=== PATIENT | female | born 2000 | race Caucasian/White ===

== ENCOUNTER 2020-02-09 09:30 | Outpatient (REF) | payer OTHER, SELFPAY ==
[2020-02-09 10:46] LABS: COVID-19 Test Negative (Negative)
== END 2020-02-09 09:31 | disposition home or self-care (01) ==
LOC: HO.EMPCOV 09:30
PROVIDERS: Visit Provider Internal Medicine
DX: Z20.828 Contact with and (suspected) exposure to other viral communicable diseases (principal)
CPT/HCPCS: 87635; C9803; U0003

== ENCOUNTER 2020-02-16 17:41 | Outpatient (REF) | payer OTHER, SELFPAY ==
[2020-02-16 18:26] LABS: COVID-19 Test Negative (Negative)
== END 2020-02-16 17:42 | disposition home or self-care (01) ==
LOC: HO.LAB 17:41
PROVIDERS: Visit Provider Internal Medicine
DX: Z20.828 Contact with and (suspected) exposure to other viral communicable diseases (principal)
CPT/HCPCS: 87635; C9803

== ENCOUNTER 2020-04-05 08:36 | Outpatient (REF) | payer OTHER, SELFPAY ==
[2020-04-05 08:57] LABS: COVID-19 Test Negative (Negative)
== END 2020-04-05 08:37 | disposition home or self-care (01) ==
LOC: HO.EMPCOV 08:36
PROVIDERS: Visit Provider Internal Medicine
DX: Z20.822 Contact with and (suspected) exposure to COVID-19 (principal)
CPT/HCPCS: 36415; 87635; C9803

== ENCOUNTER 2020-05-24 14:26 | Outpatient (REF) | payer OTHER, SELFPAY ==
[2020-05-24 14:43] LABS: COVID-19 Test Negative (Negative)
== END 2020-05-24 14:27 | disposition home or self-care (01) ==
LOC: HO.EMPCOV 14:26
PROVIDERS: Visit Provider Internal Medicine
DX: Z20.822 Contact with and (suspected) exposure to COVID-19 (principal)
CPT/HCPCS: 36415; 87635; C9803

== ENCOUNTER 2020-06-07 12:41 | Outpatient (REF) | payer OTHER, SELFPAY ==
[2020-06-07 13:00] LABS: COVID-19 Test Negative (Negative); IDNOW Serial# 55D5AD1C
== END 2020-06-07 12:42 | disposition home or self-care (01) ==
LOC: HO.EMPCOV 12:41
PROVIDERS: Visit Provider Internal Medicine
DX: Z20.822 Contact with and (suspected) exposure to COVID-19 (principal)
CPT/HCPCS: 36415; 87635; C9803

== ENCOUNTER 2020-06-09 09:35 | Outpatient (REF) | payer OTHER, SELFPAY ==
[2020-06-09 10:18] LABS: MANUAL DIFF FLAG NO
[2020-06-09 10:23] LABS: Basophils Percent Auto 0.1 % (0-2); Eosinophils Percent Auto 0.1 % (0-4); Hematocrit 40.4 % (37-47); Imm Gran Abs Auto 0.06 X10*3/uL (0.00-0.03); Imm Gran Pct Auto 0.4 % (0.0-0.4); Lymphocytes Absolute Auto 3.9 X10*3/uL (1.2-4.9); Mean Corpuscular HGB Conc 32.2 g/dl (31.0-35.0); Mean Corpuscular Hemoglobin 30.4 pg (27.0-33.0); Mean Corpuscular Volume 94.4 fL (80-98); Mean Platelet Volume 10.3 fL (9.4-12.3); Monocytes Absolute Auto 1.3 X10*3/uL (0.1-1.2); Monocytes Percent Auto 9.1 % (2-11); Neutrophils Absolute Auto 8.6 X10*3/uL (2.0-8.3); Neutrophils Percent Auto 62.3 % (45-73); Platelet Count 317 X10*3/uL (160-400); Red Blood Count 4.28 X10*6/uL (4.20-5.50); Red Cell Distribution Width 12.4 % (11.0-16.0); White Blood Count 13.9 X10*3/uL (4.8-10.8)
[2020-06-09 10:59] LABS: Alanine Aminotransferase 12 U/L (0-31); Albumin Level 4.4 g/dL (3.5-5.0); Alkaline Phosphatase 67 U/L (39-117); Anion Gap 11 (12-20); Aspartate Amino Transferase 13 U/L (5-31); Bilirubin Total 0.5 mg/dL (0.0-1.0); Blood Urea Nitrogen 10 mg/dL (9-16); Calcium 9.4 mg/dL (8.4-10.2); Carbon Dioxide 31 mmol/L (22-29); Chloride 105 mmol/L (96-108); Cholesterol 135 mg/dL; Estimated Glomerular Filt Rate > 60; Glucose Fasting 83 mg/dL (60-99); HDL Cholesterol 52 mg/dL; LDL Cholesterol Calculated 75 mg/dl; Potassium 3.6 mmol/L (3.3-5.1); Sodium 143 mmol/L (135-145); Total Protein 6.8 g/dL (6.5-8.0); Triglycerides 41 mg/dL
[2020-06-09 11:21] LABS: TSH reflex Free T4 1.43 uIU/mL (0.32-4.0)
== END 2020-06-09 09:36 | disposition home or self-care (01) ==
LOC: HO.LAB 09:35
PROVIDERS: PCP Nurse Practitioner Family; Visit Provider Nurse Practitioner Family
DX: J01.90 Acute sinusitis, unspecified (principal)
CPT/HCPCS: 36415; 80053; 80061; 84443; 85025

== ENCOUNTER 2020-06-22 14:20 | Outpatient (REF) | payer OTHER, SELFPAY ==
[2020-06-22 14:42] LABS: COVID-19 Test Negative (Negative); IDNOW Serial# 55D5AD1C
== END 2020-06-22 14:21 | disposition home or self-care (01) ==
LOC: HO.EMPCOV 14:20
PROVIDERS: Visit Provider Internal Medicine
DX: Z20.822 Contact with and (suspected) exposure to COVID-19 (principal)
CPT/HCPCS: 36415; 87635; C9803

== ENCOUNTER 2020-10-05 13:13 | Outpatient (REF) | payer OTHER, SELFPAY ==
[2020-10-06 09:20] LABS: CT PCR NOT DETECTED (Not Detect.); NG PCR NOT DETECTED (Not Detect.)
== END 2020-10-05 13:14 | disposition home or self-care (01) ==
LOC: HO.LAB 13:13
PROVIDERS: Visit Provider Advanced Practice Midwife
DX: Z01.419 Encounter for gynecological examination (general) (routine) without abnormal findings (principal); Z11.3 Encounter for screening for infections with a predominantly sexual mode of transmission; Z20.2 Contact with and (suspected) exposure to infections with a predominantly sexual mode of transmission
CPT/HCPCS: 87491; 87591

== ENCOUNTER → 2020-10-13 15:00 | Outpatient (BNVA) | payer OTHER, SELFPAY | PROVIDERS: Visit Provider Advanced Practice Midwife | DX: Z13.89 Encounter for screening for other disorder (principal) | CPT/HCPCS: 96372 ==

== ENCOUNTER → 2021-01-12 14:54 | Outpatient (BNVA) | payer OTHER, SELFPAY | PROVIDERS: Visit Provider Advanced Practice Midwife | DX: Z30.42 Encounter for surveillance of injectable contraceptive (principal) | CPT/HCPCS: 96372 ==

== ENCOUNTER 2021-02-05 07:49 | Outpatient (REF) | payer OTHER, SELFPAY ==
[2021-02-05 13:20] LABS: COVID-19 Test Negative (Negative); IDNOW Serial# 9DD0AD1C
== END 2021-02-05 07:50 | disposition home or self-care (01) ==
LOC: HO.LAB 07:49
PROVIDERS: Visit Provider Internal Medicine
DX: Z20.822 Contact with and (suspected) exposure to COVID-19 (principal)
CPT/HCPCS: 36415; 87635

== ENCOUNTER 2021-03-22 08:15 | Outpatient (REF) | payer OTHER, SELFPAY ==
[2021-03-22 10:37] LABS: Influenza A PCR NEGATIVE (Negative); Influenza B PCR NEGATIVE (Negative); Resp Syncy Virus RNA Qual PCR NEGATIVE (Negative); SARS COV2 PCR INHOUSE NEGATIVE (Negative)
== END 2021-03-22 08:16 | disposition home or self-care (01) ==
LOC: HO.LAB 08:15
PROVIDERS: Visit Provider Internal Medicine
DX: Z20.822 Contact with and (suspected) exposure to COVID-19 (principal)
CPT/HCPCS: 0241U

== ENCOUNTER → 2021-04-11 12:59 | Outpatient (BNVA) | payer OTHER, SELFPAY | PROVIDERS: PCP Internal Medicine; Visit Provider Advanced Practice Midwife | DX: Z30.42 Encounter for surveillance of injectable contraceptive (principal) | CPT/HCPCS: 96372 ==

== ENCOUNTER → 2021-07-05 13:06 | Outpatient (BNVA) | payer OTHER, SELFPAY | PROVIDERS: PCP Internal Medicine; Visit Provider Advanced Practice Midwife | DX: Z30.42 Encounter for surveillance of injectable contraceptive (principal) | CPT/HCPCS: 96372 ==

== ENCOUNTER 2021-08-08 11:58 | Outpatient (REF) | payer OTHER, SELFPAY ==
[2021-08-08 12:50] LABS: Influenza A PCR NEGATIVE (Negative); Influenza B PCR NEGATIVE (Negative); Resp Syncy Virus RNA Qual PCR NEGATIVE (Negative); SARS COV2 PCR INHOUSE NEGATIVE (Negative)
== END 2021-08-08 11:59 | disposition home or self-care (01) ==
LOC: HO.LAB 11:58
PROVIDERS: Visit Provider Internal Medicine
DX: Z20.822 Contact with and (suspected) exposure to COVID-19 (principal)
CPT/HCPCS: 0241U; C9803

== ENCOUNTER → 2021-09-28 15:01 | Outpatient (BNVA) | payer OTHER, SELFPAY | PROVIDERS: Visit Provider Advanced Practice Midwife | DX: Z30.42 Encounter for surveillance of injectable contraceptive (principal) | CPT/HCPCS: 96372 ==

== ENCOUNTER 2021-11-14 11:04 | Outpatient (REF) | payer OTHER, SELFPAY ==
[2021-11-14 12:05] LABS: COVID-19 Test Positive (Negative); IDNOW Serial# 55D5AD1C
== END 2021-11-14 11:05 | disposition home or self-care (01) ==
LOC: HO.LAB 11:04
PROVIDERS: Visit Provider Internal Medicine
DX: Z20.822 Contact with and (suspected) exposure to COVID-19 (principal)
CPT/HCPCS: 87635; C9803

== ENCOUNTER 2021-12-07 11:22 | Outpatient (REF) | payer OTHER, SELFPAY ==
[2021-12-08 06:28] LABS: CT PCR NOT DETECTED (Not Detect.); NG PCR NOT DETECTED (Not Detect.)
== END 2021-12-07 11:23 | disposition home or self-care (01) ==
LOC: HO.LNP 11:22
PROVIDERS: Visit Provider Advanced Practice Midwife
DX: Z20.2 Contact with and (suspected) exposure to infections with a predominantly sexual mode of transmission (principal)
CPT/HCPCS: 87491; 87591

== ENCOUNTER → 2021-12-14 13:02 | Outpatient (BNVA) | payer OTHER, SELFPAY | PROVIDERS: PCP Internal Medicine; Visit Provider Advanced Practice Midwife | DX: Z30.42 Encounter for surveillance of injectable contraceptive (principal) | CPT/HCPCS: 96372 ==

== ENCOUNTER → 2022-03-01 12:59 | Outpatient (BNVA) | payer OTHER, SELFPAY | PROVIDERS: PCP Internal Medicine; Visit Provider Advanced Practice Midwife | DX: Z30.42 Encounter for surveillance of injectable contraceptive (principal) | CPT/HCPCS: 96372 ==

== ENCOUNTER 2022-03-02 12:20 | Emergency (ER) | payer OTHER, SELFPAY ==
--- NOTE | ~2022-03-02 | XR_ITS ---
EXAMINATION: XR CHEST CLINICAL INFORMATION: Chest pain. COMPARISON: None TECHNIQUE: 2 views of the chest were obtained. FINDINGS: No significant abnormality is noted involving the heart, lungs, mediastinum, bony thorax or soft tissues. XR/XR chest 2V IMPRESSION: No acute cardiopulmonary process.
[2022-03-02 12:25] VITALS: BP 132/75; PULSE 76; RESP 20; TEMP 36.7; O2SAT 99; BMI 21.8
--- NOTE | 2022-03-02 12:25 | ED_ITS ---
HPI - Chest Pain General Chief Complaint: Chest Pain Stated Complaint: Chest pain Time Seen by Provider: 03/02/22 14:13 Source: patient Mode of arrival: ambulatory Limitations: no limitations History of Present Illness HPI narrative: 21-year-old female who is healthy presents with chest pain since yesterday. Chest pain worsened with deep breathing, movement, palpation. No cough, difficulty breathing, leg swelling or leg pain, fevers, chills, abdominal pain, vomiting. No recent travel or sick contact. No OCP use. Related Data Previous Rx's Medication Instructions Recorded medroxyprogesterone 150 mg/mL 150 mg IM [id number] #1 mL 12/07/21 intramuscular suspension (Depo-Provera) ibuprofen 600 mg tablet 600 mg PO Q6H PRN fever or pain 03/02/22 #30 tabs Allergies Allergy/AdvReac Type Severity Reaction Status Date / Time amoxicillin [AMOXICILLIN] Allergy Unknown UNKNOWN, Verified 12/07/21 10:44 hand swelling penicillin V AdvReac Unknown hand Verified 12/07/21 10:44 swelling Review of Systems Review of Systems: Yes all other systems are reviewed and are negative Constitutional: Constitutional: Reports no additional constitutional complaints, Denies body ache(s), Denies chills, Denies fever(s), Denies headache(s) and Denies weakness Eyes: Eyes: Reports no additional eye complaints and Denies change in vision ENT: Reports system reviewed and no additional complaints, except as documented, Denies dizziness, Denies headache(s), Denies nasal congestion, Gregg es nasal discharge and Denies neck pain Cardiovascular: Cardiovascular: Reports no additional cardiovascular complaints, Reports chest pain, Denies leg edema and Denies dyspnea Respiratory: Respiratory: Reports no additional respiratory complaints, Denies cough and Denies dyspnea Gastrointestinal: Gastrointestinal: Reports no additional gastrointestinal complaints, Denies abdominal pain, Denies diarrhea, Denies nausea and Denies vomiting Genitourinary: Genitourinary: Reports no additional female genitourinary complaints and Denies urinary incontinence Musculoskeletal: Musculoskeletal: Reports no additional musculoskeletal complaints, Denies back pain, Denies arthralgias, Denies joint swelling, Denies neck pain, Denies numbness and Denies tingling Integumentary/Breasts: Skin/Breast: Reports system reviewed and no additional complaints, except as docu and Denies rash Neurologic: Reports system reviewed and no additional complaints, except as documented, Denies Abnormal speech present, Denies dizziness, Denies headache(s), Denies numbness, Denies tingling and Denies weakness PMFSH Past Medical History Attestation statement: The following information was validated with the patient. Source: old records reviewed and nursing notes reviewed Medical History Insomnia Surgical History No history of previous surgery Family History Family History Mother Factor V deficiency Father No problems noted. Maternal Grandfather Colon cancer Lung cancer Brain cancer Social History Social History Alcohol intake: current Alcohol intake frequency: a few times a month Patient Tobacco Use Status: Former Tobacco user Substance Use Type: Marijuana Advance Directives: No Advance Directives Information Provided: No Current occupational status: employed and student Sexual orientation: Straight/Heterosexual Gender identity: Female Physical Exam Vital Signs: Vital Signs: Last Vital Signs Temp 97.4 F 03/02/22 14:16 Pulse 60 03/02/22 14:16 Resp 20 03/02/22 14:16 BP 111/68 03/02/22 14:16 Pulse Ox 100 03/02/22 14:16 O2 Del Method 03/02/22 14:16 BMI result Body Mass Index 21.8 Const: General: cooperative, healthy appearing, comfortable and no acute distress Orientation/consciousness: patient oriented x3 Limitations: no limitations HEENT: Head: Yes normal to inspection Ears: hearing grossly normal bilaterally General nose exam: Normal external nose present Face and sinus: Yes normal facial exam Mouth: Normal oral and palatal mucosa present Throat: Yes posterior oropharynx normal Eyes: General: appearance normal, both eyes and all related structures Pupils: Equal, round and reactive pupils present Neck: Neck: Yes normal visual inspection Chest: Other: Tenderness the central chest, worsened with deep breathing, palpation of the chest and movement of the trunk and upper arms. Chest palpation & inspection: normal inspection of the chest Resp: Effort & Inspection: normal respiratory effort Auscultation: clear to auscultation bilaterally Cardio: Rate: regular rate Rhythm: regular rhythm Peripheral pulses: Peripheral pulses 2+ throughout GI: Inspection: Yes normal to inspection Palpation (GI): Soft to palpation and nontender Auscultation: normal bowel sounds Back/Spine/Pelvis: Thoracic/Lumbar Spine: thoracic and lumbar spine normal to inspection Skin: General skin exam: no rashes or lesions noted Neuro: General: patient oriented x3, no focal motor deficits and normal sensation to monofilament Cranial nerves: Yes Equal, round and reactive pupils present Cognition (Neuro): normal cognition Speech: No Abnormal speech present Gait exam (Neuro): Normal gait present Motor exam (neuro): 5/5 motor strength present throughout Extrem: General: Yes normal to inspection, Yes no pedal edema and Yes no calf tenderness Course Course Course Narrative: This is a rapid medical exam. Deferred additional HPI, ROS, PE to primary provider. 21-year-old female healthy here with pleuritic chest pain since yesterday with no other symptoms. PERC 0 Will need labs, EKG, CXR, covid testing. VSS Medical Decision Making Medical Decision Making MDM Narrative: 21-year-old female here with reproducible, pleuritic chest pain since yesterday with no other symptoms. Vitals are stable. Lungs are clear. Exam is normal. Consider PE. Less likely with perc score 0. No clinical findings concerning fo r DVT, no risk factors, no tachypnea, hypoxia, tachycardia Consider ACS. Less likely with symptoms 48 hours with negative troponin EKG. Consider dissection. Less likely with gradual onset of symptoms. Likely musculoskeletal. Recommend patient start NSAID, follow-up with primary care doctor for any persistent symptoms. Reviewed worrisome signs and symptoms of when to return to the emergency room. Comfortable discharge home. Independent interpretation of EKG, rhythm strip, radiology study: Independent interp EKG,rhythm strip, radiology study I performed an independent interpretation of the: EKG and Plain X-Ray (CXR with no acute finding. ) My interpretation is NSR, normal pr, normal qrs ,normal qt Discharge Plan Discharge Clinical Impression: Chest pain Patient Disposition: Home, Self-Care Instructions: Chest Pain (DC) Additional Instructions: Blood work, EKG and chest x-ray are all reassuring. Testing for COVID is negative. Prescriptions: New ibuprofen 600 mg tablet 600 mg PO Q6H PRN (Reason: fever or pain) Qty: 30 0RF No Action medroxyprogesterone [Depo-Provera] 150 mg/mL suspension 150 mg IM [id number] Qty: 1 3RF Referrals: Hilton Samson PA-C [Primary Care Provider] - 1 week Stand Alone Forms: Work/School Release Interventions: ED Discharge Assessment Last Done: 03/02/22 14:18 Discharge Date/Time: 03/02/22 14:19
--- NOTE | 2022-03-02 12:25 | ECG_ITS ---
Test Reason : chest pain Blood Pressure : / mmHG Vent. Rate : 080 BPM Atrial Rate : 080 BPM P-R Int : 124 ms QRS Dur : 072 ms QT Int : 360 ms P-R-T Axes : 034 071 034 degrees QTc Int : 415 ms Normal sinus rhythm Normal ECG No previous ECGs available Referred By: Zandra Conroy Electronically Signed By:IRA ELLIS MD
[2022-03-02 12:45] LABS: MANUAL DIFF FLAG NO
[2022-03-02 12:46] LABS: Basophils Percent Auto 0.3 % (0-2); Eosinophils Absolute Auto 0.1 X10*3/uL (0.0-0.4); Eosinophils Percent Auto 1.4 % (0-4); Hematocrit 42.6 % (37.0-47.0); Hemoglobin 14.2 g/dl (12.0-16.0); Imm Gran Abs Auto 0.01 X10*3/uL (0.00-0.03); Imm Gran Pct Auto 0.2 % (0.0-0.4); Lymphocytes Absolute Auto 2.1 X10*3/uL (1.2-4.9); Mean Corpuscular HGB Conc 33.3 g/dl (31.0-35.0); Mean Corpuscular Hemoglobin 30.5 pg (27.0-33.0); Mean Corpuscular Volume 91.6 fL (80.0-98.0); Mean Platelet Volume 10.2 fL (9.4-12.3); Monocytes Absolute Auto 0.5 X10*3/uL (0.1-1.2); Monocytes Percent Auto 7.9 % (2-11); Neutrophils Absolute Auto 3.6 x10*3/uL (2.0-8.3); Neutrophils Percent Auto 57.2 % (45-73); Platelet Count 263 X10*3/uL (160-400); Red Blood Count 4.65 X10*6/uL (4.20-5.50); Red Cell Distribution Width 12.4 % (11.0-16.0); White Blood Count 6.3 X10*3/uL (4.8-10.8)
[2022-03-02 12:51] LABS: INTERNATIONAL NORM RATIO 1.2 (0.9-1.1); Prothrombin Time 13.3 SEC (10.0-13.1)
[2022-03-02 12:58] LABS: COVID-19 Test Negative (Negative); IDNOW Serial# BCCEAD1C
[2022-03-02 13:02] LABS: Alanine Aminotransferase 13 U/L (0-31); Albumin Level 4.2 g/dL (3.5-5.0); Alkaline Phosphatase 67 U/L (39-117); Anion Gap 10 (12-20); Aspartate Amino Transferase 14 U/L (5-31); Bilirubin Direct 0.2 mg/dL (0.0-0.5); Bilirubin Total 0.5 mg/dL (0.0-1.0); Blood Urea Nitrogen 8 mg/dL (9-16); Calcium 9.3 mg/dL (8.4-10.2); Carbon Dioxide 25 mmol/L (22-29); Chloride 109 mmol/L (96-108); Creatinine Clr Calc Pharmacy 99.4; Estimated Glomerular Filt Rate > 60; Glucose Random 93 mg/dL (60-115); Potassium 4.3 mmol/L (3.3-5.1); Sodium 140 mmol/L (135-145); Total Protein 6.6 g/dL (6.5-8.0)
[2022-03-02 13:08] LABS: Troponin-I High Sensitivity < 3.5 ng/L (<3.5-17.0)
[2022-03-02 14:16] VITALS: BP 111/68; PULSE 60; RESP 20; TEMP 36.3; O2SAT 100
== END 2022-03-02 14:19 | disposition home or self-care (01) ==
PROVIDERS: Nurse Practitioner Family; Emergency Provider Emergency Medicine; PCP Physician Assistant
DX: R07.89 Other chest pain (principal); Z20.822 Contact with and (suspected) exposure to COVID-19; Z79.899 Other long term (current) drug therapy; Z87.891 Personal history of nicotine dependence
CPT/HCPCS: 36415; 71046; 80048; 80076; 84484; 85025; 85610; 87635; 93005; 99283

== ENCOUNTER 2022-06-23 15:24 | Emergency (ER) | payer OTHER, SELFPAY ==
--- NOTE | 2022-06-23 15:31 | ED.GENADULT ---
HPI - General Adult General Chief complaint: Skin/Abscess/Foreign Body <ROSEANN Lima Last Filed: 06/23/22 15:33> Stated complaint: Vaginal cyst <ROSEANN Lima Last Filed: 06/23/22 15:33> Time Seen by Provider: 06/23/22 16:10 <ROSEANN Lima Last Filed: 06/23/22 15:33> Source: patient and RN notes reviewed <ROSEANN Dockery Last Filed: 06/23/22 18:47> Mode of arrival: ambulatory <ROSEANN Dockery Last Filed: 06/23/22 18:47> Limitations: no limitations <ROSEANN Dockery Last Filed: 06/23/22 18:47> History of Present Illness HPI narrative: This is a 21-year-old female, no past medical history, who presents emergency department today complaining of left labial swelling since yesterday. Patient reports that while she was showering yesterday she noticed her left labia was swollen and throughout the day she noticed more pain and swelling to this area. She applied warm compresses overnight to the area however woke up this morning and felt as though it has become abscess. Patient denies history of similar symptoms past. She denies any discharge from the region. She denies any fevers or chills. No concerns for STIs, no vaginal discharge. Patient currently has her menses. <ROSEANN Dockery Last Filed: 06/23/22 18:47> MD complaint: left labial swelling <ROSEANN Dockery Last Filed: 06/23/22 18:47> Onset (ago): day(s) <ROSEANN Dockery Last Filed: 06/23/22 18:47> Location: genitals <ROSEANN Dockery Last Filed: 06/23/22 18:47> Radiation: non-radiation <ROSEANN Dockery - Last Filed: 06/23/22 18:47> Severity: moderate <ROSEANN Dockery Last Filed: 06/23/22 18:47> Quality: aching <ROSEANN Dockery Last Filed: 06/23/22 18:47> Pain Consistency: constant <ROSEANN Dockery Last Filed: 06/23/22 18:47> Relieving factors: none <ROSEANN Dockery - Last Filed: 06/23/22 18:47> Exacerbating factors: none <ROSEANN Dockery - Last Filed: 06/23/22 18:47> Associated symptoms: denies other symptoms <ROSEANN Dockery - Last Filed: 06/23/22 18:47> Treatments prior to arrival: none <ROSEANN Dockery - Last Filed: 06/23/22 18:47> Related Data Home medications: Previous Rx's Medication Instructions Recorded medroxyprogesterone 150 mg/mL 150 mg IM [id number] #1 mL 12/07/21 intramuscular suspension (Depo-Provera) ibuprofen 600 mg tablet 600 mg PO Q6H PRN fever or pain 03/02/22 #30 tabs doxycycline hyclate 100 mg capsule 100 mg PO BID #14 caps 06/23/22 oxycodone 5 mg capsule 5 mg PO Q4-6H PRN severe pain #10 06/23/22 caps <ROSEANN Lima - Last Filed: 06/23/22 15:33> Allergies/adverse reactions: Allergies Allergy/AdvReac Type Severity Reaction Status Date / Time amoxicillin [AMOXICILLIN] Allergy Unknown UNKNOWN, Verified 04/19/22 10:08 hand swelling penicillin V AdvReac Unknown hand Verified 04/19/22 10:08 swelling <ROSEANN Lima - Last Filed: 06/23/22 15:33> Review of Systems Review of Systems: Yes all other systems are reviewed and are negative <ROSEANN Dockery - Last Filed: 06/23/22 18:47> [facility] Past Medical History Medical History: Medical History Insomnia <ROSEANN Lima - Last Filed: 06/23/22 15:33> Surgical History: Surgical History No history of previous surgery <ROSEANN Lima - Last Filed: 06/23/22 15:33> Family History Family History: Family History Mother Factor V deficiency Father No problems noted. Maternal Grandfather Colon cancer Lung cancer Brain cancer <ROSEANN Lima - Last Filed: 06/23/22 15:33> Social History Social History: Social History Alcohol intake: current Alcohol intake frequency: a few times a month Patient Tobacco Use Status: Former Tobacco user e-Cigarette/Vaping Use: Never Used Substance Use Type: Marijuana Advance Directives: No Advance Directives Information Provided: Yes Current occupational status: employed and student Sexual orientation: Straight/Heterosexual Gender identity: Female <ROSEANN Lima - Last Filed: 06/23/22 15:33> Physical Exam ED Vital Signs: Vital Signs - 24 hr 06/23/22 15:32 Temperature 97.3 F Pulse Rate 88 Respiratory Rate 16 Blood Pressure 141/81 H Pulse Oximetry 96 Oxygen Delivery Method Room Air BMI result Body Mass Index 30.9 <ROSEANN Lima - Last Filed: 06/23/22 15:33> Vital Signs - 24 hr 06/23/22 15:32 Temperature 97.3 F Pulse Rate 88 Respiratory Rate 16 Blood Pressure 141/81 H Pulse Oximetry 96 Oxygen Delivery Method Room Air BMI result Body Mass Index 30.9 <ROSEANN Dockery - Last Filed: 06/23/22 18:47> General: Awake, alert, and oriented X3. No acute distress. HEENT: Normal inspection CVS: Normal heart rate and rhythm. Pulses normal. Respiratory: No respiratory distress Skin: Warm, dry, no rashes noted to exposed skin. Normal skin color. Normal skin turgor. Extremities: : Left labia with moderate erythema and edema, measuring approximately 3cm x 2cm. There is a 1 cm papule overlying this region. Area is indurated, fluctuant, and tender with palpation. Neuro: Oriented X 3. No motor deficit. No sensory deficit. Stone Layout Marker, Zandra Ledesma NP, present during examination <ROSEANN Dockery - Last Filed: 06/23/22 18:47> Course Course Course Narrative: RME performed by Josseline Lombardi PA-C. Patient is a 21 year old assigned female at presenting to the emergency department with a left sided labial abscess. Patient placed back in the waiting room pending room availability and results. <ROSEANN Lima Last Filed: 06/23/22 15:33> Medications Administered Discontinued Medications Generic Name Dose Route Start Last Admin Trade Name Taya PRN Reason Stop Dose Admin Lidocaine HCl 5 ml 06/23/22 16:42 06/23/22 16:53 Lidocaine Hcl 1 % 20 Ml Vial SUBCUT 06/23/22 16:43 5 ml ONCE ONE Administration <ROSEANN Lima Last Filed: 06/23/22 15:33> Medications Administered Discontinued Medications Generic Name Dose Route Start Last Admin Trade Name Freq PRN Reason Stop Dose Admin Lidocaine HCl 5 ml 06/23/22 16:42 06/23/22 16:53 Lidocaine Hcl 1 % 20 Ml Vial SUBCUT 06/23/22 16:43 5 ml ONCE ONE Administration <ROSEANN Dockery Last Filed: 06/23/22 18:47> Procedures Procedure Narrative Procedure Narrative: Area cleansed with betadine. Local anethesia achieved using 3cc of 1% lidocaine. Small incision made, moderate amount of purulent drainage expressed from the region. Word catheter placed. patient tolerated procedure well without complications or concerns. Zandra Ledesma NP chaperoned during entirey of the procedure. <ROSEANN Dockery Last Filed: 06/23/22 18:47> Abscess I/D Site: other <ROSEANN Dockery Last Filed: 06/23/22 18:47> Side (if applicable): left <ROSEANN Dockery Last Filed: 06/23/22 18:47> Sedation/analgesia: none <ROSEANN Dockery Last Filed: 06/23/22 18:47> Local Anesthetic: lidocaine 1% <ROSEANN Dockery Last Filed: 06/23/22 18:47> Amount of anesthesia used (mL): 3 <ROSEANN Dockery Last Filed: 06/23/22 18:47> Technique: incised with blade <ROSEANN Dockery Last Filed: 06/23/22 18:47> Sent for culture/gram staining?: No <ROSEANN Dockery Last Filed: 06/23/22 18:47> Irrigation: No <ROSEANN Dockery Last Filed: 06/23/22 18:47> Packing used?: Word catheter <ROSEANN Dockery - Last Filed: 06/23/22 18:47> Medical Decision Making Medical Decision Making MDM Narrative: 21-year-old female presents emergency department today for evaluation of swelling and abscess. I&D performed, see procedure note. Word catheter placed. Patient tolerated procedure well without complications. Patient discharged on doxycycline and oxycodone for severe pain. Educated that this catheter will likely fall out on its own. Can return for removal, given referral to Dr. Chamberlain if patient is unable to be seen by [facility]PERATOR. Patient understands and agrees with plan. <ROSEANN Dockery - Last Filed: 06/23/22 18:47> Differential Diagnosis Differential Diagnoses: The differential diagnosis associated with the presentation includes <ROSEANN Dockery - Last Filed: 06/23/22 18:47> Bartholin's cyst, labial abscess, cellulitis, vaginitis <ROSEANN Dockery - Last Filed: 06/23/22 18:47> Discharge Plan Discharge Clinical Impression: Abscess of labia <ROSEANN Lima - Last Filed: 06/23/22 15:33> Patient Disposition: Home, Self-Care <ROSEANN Lima - Last Filed: 06/23/22 15:33> Instructions: Abscess (ED), Incision and Drainage (ED) <ROSEANN Lima - Last Filed: 06/23/22 15:33> Additional Instructions: Keep area clean and dry. Keep catheter in place, this may fall out on its own - this is ok if this happens. Follow-up with your OBGYN for further management - they can remove the catheter in 1 week. Take pain medication as directed. Oxycodone can cause drowsiness, do not drink alcohol or drive while taking this medication. Take antibiotic as directed. If any new or worsening symptoms occur, please return for re-evaluation. <ROSEANN Lima - Last Filed: 06/23/22 15:33> Prescriptions: New doxycycline hyclate 100 mg capsule 100 mg PO BID Qty: 14 0RF oxycodone 5 mg capsule 5 mg PO Q4-6H PRN (Reason: severe pain) Qty: 10 0RF Rx Instructions: Partial Fill upon patient request. No Action ibuprofen 600 mg tablet 600 mg PO Q6H PRN (Reason: fever or pain) Qty: 30 0RF medroxyprogesterone [Depo-Provera] 150 mg/mL suspension 150 mg IM [id number] Qty: 1 3RF <ROSEANN Lima - Last Filed: 06/23/22 15:33> Referrals: Ever Chamberlain MD [Physician] - <ROSEANN Lima - Last Filed: 06/23/22 15:33> Stand Alone Forms: Work/School Release <ROSEANN Lima - Last Filed: 06/23/22 15:33> Interventions: ED Discharge Assessment Last Done: 06/23/22 17:44 <ROSEANN Lima - Last Filed: 06/23/22 15:33> Discharge Date/Time: 06/23/22 17:47 <ROSEANN Lima - Last Filed: 06/23/22 15:33>
[2022-06-23 15:32] VITALS: BP 141/81; PULSE 88; RESP 16; TEMP 36.3; O2SAT 96; BMI 30.9
[2022-06-23] MEDS: Lidocaine HCl 1 % 20 ML VIAL 5 ML SUBCUT (16:53)
--- NOTE | 2022-06-23 16:53 | PC.NURSE ---
lidocaine administered by provider to assist with draining cyst
== END 2022-06-23 17:47 | disposition home or self-care (01) ==
PROVIDERS: Emergency Provider Emergency Medicine Emergency Medical Services; PCP Physician Assistant
DX: N76.4 Abscess of vulva (principal)
CPT/HCPCS: 56405; 99282; 99284

== ENCOUNTER → 2022-06-27 11:39 | Outpatient (BNVA) | payer OTHER, SELFPAY | PROVIDERS: PCP Physician Assistant; Visit Provider Advanced Practice Midwife | DX: Z13.89 Encounter for screening for other disorder (principal) ==

== ENCOUNTER → 2022-06-29 11:32 | Outpatient (BNVA) | payer OTHER, SELFPAY | PROVIDERS: Visit Provider Advanced Practice Midwife | DX: Z13.89 Encounter for screening for other disorder (principal) ==

== ENCOUNTER 2022-09-28 02:02 | Emergency (ER) | payer OTHER, SELFPAY ==
[2022-09-28 02:11] VITALS: BP 110/76; PULSE 65; RESP 17; TEMP 36.8; O2SAT 98; BMI 32.6
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
== END 2022-09-28 03:27 | disposition home or self-care (01) ==
PROVIDERS: Emergency Provider Internal Medicine
DX: Z04.2 Encounter for examination and observation following work accident (principal); Z77.21 Contact with and (suspected) exposure to potentially hazardous body fluids
CPT/HCPCS: 99282

== ENCOUNTER 2022-10-16 08:25 | Outpatient (AMB) | payer OTHER, SELFPAY ==
--- NOTE | 2022-10-16 08:26 | MHC.OFFWIV ---
Intake Vital Signs 10/16/22 08:27 Height 5 ft 4 in BP 110/78 Blood Pressure Location Rt brachial Position Sitting Pulse 71 Pulse Source Pulse Oximeter Temp 98.2 F Temp Source Oral Pulse Oximetry (%) 99 Oxygen Delivery Method Room Air Intake Visit Reasons: EP GI problems [phone] Intake Note: Pt is here for diarrhea, started . Patient Tobacco Use Status: Former Tobacco user Allergies amoxicillin [AMOXICILLIN] Allergy (Unknown, Verified 10/16/22 09:24) UNKNOWN, hand swelling penicillin V Adverse Reaction (Unknown, Verified 10/16/22 09:24) hand swelling Medication List - Last Reconciled 10/16/22 by Don Hdz MD No Known Home Meds Do you need a note to return to daycare/school/sports/work: Yes HPI EP GI problems [phone] HPI Details 22-year-old female presents to the office for a sick visit. Patient was on a cruise and subsequently has developed diarrhea. Two to 3 times a day and has woken her up from deep sleep. Minimal cramping. PFSH Medical History Insomnia Surgical History No history of previous surgery Family History Mother Factor V deficiency Father No problems noted. Maternal Grandfather Colon cancer Lung cancer Brain cancer Social History Alcohol intake: current Alcohol intake frequency: a few times a month Patient Tobacco Use Status: Former Tobacco user e-Cigarette/Vaping Use: Never Used Substance Use Type: Marijuana Current occupational status: employed and student Sexual orientation: Straight/Heterosexual Gender identity: Female Female Reproductive History Menstrual Age of Menarche: 8 Physical Exam Vital Signs: Last Vital Signs Temp 98.2 F 10/16/22 08:27 Pulse 71 10/16/22 08:27 BP 110/78 10/16/22 08:27 Pulse Ox 99 10/16/22 08:27 Oxygen Delivery Method Room Air 10/16/22 08:27 Const General: cooperative and healthy appearing Nutritional Appearance: well nourished Orientation/consciousness: patient oriented x3 Limitations: no limitations HEENT Head: Yes normal to inspection Eyes General: appearance normal, both eyes and all related structures Neck Neck: Yes normal visual inspection Chest Chest palpation & inspection: normal palpation of entire chest wall Resp Effort & Inspection: normal respiratory effort Neuro General: patient oriented x3 Assessment & Plan Assessment & Plan (1) Gastroenteritis: Code(s): K52.9 - Noninfective gastroenteritis and colitis, unspecified Plan: Cipro called in. Patient declined to be tested for . Note for work given. Symptoms should resolve on the medications. Coding Level of Care Code Est Pt Level 3 (13815) Diagnoses Gastroenteritis K52.9
[2022-10-16 08:27] VITALS: BP 110/78; PULSE 71; TEMP 36.8; O2SAT 99
== END 2022-10-16 09:42 | disposition home or self-care (01) ==
PROVIDERS: Visit Provider Internal Medicine
DX: K52.9 Noninfective gastroenteritis and colitis, unspecified (principal)
CPT/HCPCS: 99213

== ENCOUNTER 2023-02-09 08:51 | Outpatient (REF) | payer OTHER, SELFPAY ==
[2023-02-09 10:55] LABS: Glucose Fasting 80 mg/dL (60-99)
[2023-02-09 11:16] LABS: MANUAL DIFF FLAG NO
[2023-02-09 11:53] LABS: Appearance Urine Clear; Color Urine Yellow; Glucose Urine UA Negative (Negative); Leukocyte Esterase Urine Negative (Negative); Nitrite Urine Negative (Negative); Specific Gravity - Urine 1.015 (1.005-1.025); Urine Blood Negative (Negative); Urine Ketones Negative (Negative); Urine Protein Negative (Neg-Trace)
[2023-02-09 11:55] LABS: Basophils Percent Auto 0.1 % (0-2); Eosinophils Absolute Auto 0.1 X10*3/uL (0.0-0.4); Eosinophils Percent Auto 0.9 % (0-4); Hematocrit 43.7 % (37.0-47.0); Hemoglobin 14.2 g/dl (12.0-16.0); Imm Gran Abs Auto 0.02 X10*3/uL (0.00-0.03); Imm Gran Pct Auto 0.2 % (0.0-0.4); Lymphocytes Absolute Auto 1.9 X10*3/uL (1.2-4.9); Lymphocytes Percent Auto 23.8 % (20-40); Mean Corpuscular HGB Conc 32.5 g/dl (31.0-35.0); Mean Corpuscular Volume 92.2 fL (80.0-98.0); Mean Platelet Volume 11.2 fL (9.4-12.3); Monocytes Absolute Auto 0.6 X10*3/uL (0.1-1.2); Monocytes Percent Auto 6.8 % (2-11); Neutrophils Absolute Auto 5.5 x10*3/uL (2.0-8.3); Neutrophils Percent Auto 68.2 % (45-73); Platelet Count 252 X10*3/uL (160-400); Red Blood Count 4.74 X10*6/uL (4.20-5.50); Red Cell Distribution Width 13.9 % (11.0-16.0); White Blood Count 8.1 X10*3/uL (4.8-10.8)
[2023-02-09 12:23] LABS: Glucose 1 Hour 106 mg/dL
[2023-02-09 12:46] LABS: Syphilis Screen Nonreactive (Nonreactive)
[2023-02-10 03:31] LABS: HBsAGNum1 0.31 S/CO (0.00-0.99); HIV AB/AG Nonreactive (Nonreactive); HIV Num 1 0.06 S/CO (0.00-0.99); Hepatitis B Surface Antigen Negative (Negative); ~HepC Num1 0.08 S/CO (0.00-0.79); ~Hepatitis C Antibody Nonreactive (Nonreactive)
[2023-02-12 18:19] LABS: Rubella IgG Antibody <0.90 Index
== END 2023-02-09 08:52 | disposition home or self-care (01) ==
LOC: HO.LAB 08:51
PROVIDERS: Visit Provider Advanced Practice Midwife
DX: Z34.90 Encounter for supervision of normal pregnancy, unspecified, unspecified trimester (principal)
CPT/HCPCS: 36415; 81003; 82951; 85025; 86762; 86780; 86803; 86850; 86900; 86901; 87086; 87340; 87389

== ENCOUNTER 2023-03-23 08:11 | Outpatient (REF) | payer OTHER, SELFPAY ==
[2023-03-23 09:41] LABS: Syphilis Screen Nonreactive (Nonreactive)
[2023-03-23 09:42] LABS: HBsAGNum1 0.41 S/CO (0.00-0.99); Hepatitis B Surface Antigen Negative (Negative); ~HepC Num1 0.08 S/CO (0.00-0.79); ~Hepatitis C Antibody Nonreactive (Nonreactive)
[2023-03-23 12:22] LABS: Appearance Urine Clear; Color Urine Yellow; Glucose Urine UA Negative (Negative); Leukocyte Esterase Urine Negative (Negative); Nitrite Urine Negative (Negative); PH 7.5 (5.0-9.0); Specific Gravity - Urine 1.025 (1.005-1.025); Urine Blood Negative (Negative); Urine Ketones Negative (Negative); Urine Protein Negative (Neg-Trace)
[2023-03-27 15:34] LABS: Hematocrit 40.9 % (35.0-45.0); Hemoglobin 13.7 g/dL (11.7-15.5); MCH 30.1 pg (27.0-33.0); MCV 89.9 fL (80.0-100.0); RBC 4.55 Million/uL (3.80-5.10); RDW 14.1 % (11.0-15.0)
[2023-03-29 16:25] LABS: Factor VIII Activity Clotting 106 % normal (50-180); PTT, Activated 33 sec (23-32); Ristocetin Cofactor 87 % normal (42-200)
== END 2023-03-23 08:12 | disposition home or self-care (01) ==
LOC: HO.LAB 08:11
PROVIDERS: Visit Provider Advanced Practice Midwife
DX: Z34.90 Encounter for supervision of normal pregnancy, unspecified, unspecified trimester (principal); E66.9 Obesity, unspecified
CPT/HCPCS: 81003; 83020; 85014; 85018; 85041; 85240; 85245; 85246; 85247; 85730; 86780; 86803; 86850; 86900; 86901; 87086; 87340

== ENCOUNTER 2023-05-07 08:06 | Outpatient (REF) | payer OTHER, SELFPAY ==
[2023-05-07 08:24] LABS: MANUAL DIFF FLAG NO
[2023-05-07 08:35] LABS: Basophils Percent Auto 0.2 % (0-2); Eosinophils Absolute Auto 0.2 X10*3/uL (0.0-0.4); Eosinophils Percent Auto 2.1 % (0-4); Hematocrit 40.2 % (37.0-47.0); Hemoglobin 13.7 g/dl (12.0-16.0); Imm Gran Abs Auto 0.04 X10*3/uL (0.00-0.03); Imm Gran Pct Auto 0.4 % (0.0-0.4); Lymphocytes Absolute Auto 2.3 X10*3/uL (1.2-4.9); Lymphocytes Percent Auto 25.8 % (20-40); Mean Corpuscular HGB Conc 34.1 g/dl (31.0-35.0); Mean Corpuscular Hemoglobin 31.4 pg (27.0-33.0); Mean Platelet Volume 10.4 fL (9.4-12.3); Monocytes Absolute Auto 0.8 X10*3/uL (0.1-1.2); Monocytes Percent Auto 8.5 % (2-11); Neutrophils Absolute Auto 5.7 x10*3/uL (2.0-8.3); Platelet Count 217 X10*3/uL (160-400); Red Blood Count 4.37 X10*6/uL (4.20-5.50); Red Cell Distribution Width 12.9 % (11.0-16.0)
== END 2023-05-07 08:07 | disposition home or self-care (01) ==
LOC: HO.LAB 08:06
PROVIDERS: PCP Internal Medicine; Visit Provider Advanced Practice Midwife
DX: Z34.90 Encounter for supervision of normal pregnancy, unspecified, unspecified trimester (principal)
CPT/HCPCS: 36415; 82105; 85025; 87086

== ENCOUNTER → 2023-05-17 13:08 | Outpatient (BNVA) | payer OTHER, SELFPAY | PROVIDERS: Visit Provider Advanced Practice Midwife ==

== ENCOUNTER 2023-05-29 15:10 | Outpatient (AMB) | payer OTHER, SELFPAY ==
--- NOTE | 2023-05-29 15:11 | MHC.PC.OV ---
Vital Signs 05/29/23 15:21 Height 5 ft 4 in Weight 205 lb 8 oz BMI 35.3 BP 102/70 Blood Pressure Location Rt brachial Position Sitting Respiration 13 Pulse 60 Pulse Source Pulse Oximeter Temp 97.4 F Temp Source Temporal Artery Scan Pulse Oximetry (%) 99 Oxygen Delivery Method Room Air Intake Visit Reasons: MITCH from [facility] Intake Note: Patient is transferring from [facility] to [facility]. Patient is currently 5 months with an expected due date of September 30. She has no concerns at this time. 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 Accompanied by: Self / Same As Patient Allergies amoxicillin [AMOXICILLIN] Allergy (Unknown, Verified 05/29/23 15:47) UNKNOWN, hand swelling penicillin V Adverse Reaction (Unknown, Verified 05/29/23 15:47) hand swelling Medication List - Last Reconciled 05/29/23 by PRASHANT Ayala docosahexaenoic acid ( DHA) mg PO Tobacco use date assessed: 05/29/23 Dental Screening Dental Screen Date: 05/29/23 Did you have a dental visit in the last 12 months?: Yes Did you have a dental problem in the last 6 months where you did not have access to dental care?: No Was dental information given to patient?: Patient has dentist HPI HPI Comments History of Present Illness Details 22-year-old female currently , GERD Health Maintenance: labs 05/07/2023 show a normal CBC, Pap smear 2020 within normal limits; currently managed by [facility] [employer] Vaccines: Flu today. COVID x 2. Surgical hx:None Hospitalizations: None Family hx: Mom alive and well. Dad alive and well. Siblings: 2 sisters, 1 brother. Alive and well. 2020, elective + MGM Alive MGF age 79 colon cancer with mets lung and brain PGM age 64 DM PGF age 70 natural causes Denies sig family hx of aunts, uncles and first cousins. Here today to [facility] care. & for complete physical exam Reports health no problems. GERD resolves with TUMS. Sciatica like pain on Right side Reports healthy appetite Sleeping well Mood is the same. A little more sensitive. PFSH Medical History Insomnia Surgical History No history of previous surgery Family History Mother Factor V deficiency Father No problems noted. Maternal Grandfather Colon cancer Lung cancer Brain cancer Social History Household Members: Family Household Members Other:: Grandma Both parents involved: No Caregiver staying overnight: No Housing: House Are you a primary dialysis patient care technician to a significant other at home: No Do you presently have visiting nurse or other home services: No 75 years or older and lives alone: No Alcohol intake: former Comment: No Alcohol Patient Tobacco Use Status: Never used Tobacco e-Cigarette/Vaping Use: Former Use Frequency of e-Cigarette/Vaping Use: Used about 1 year and has not used in 1.5 years Use of substances other than those prescribed or required for medical reasons: Yes Substance Use Type: Marijuana Have you been hit, kicked, punched, or otherwise hurt by someone within the past year? If so, by whom?: No Do you feel safe in your current relationship?: Yes Is there a partner from a previous relationship who is making you feel unsafe now?: No Are you made to feel afraid or neglected: No service: No Current occupational status: employed and student (Human Services degree; Bachelors in Psychology ) Current occupation: [employer] Current occupational exposures/hazards: No Sexually active: Yes Sexual orientation: Straight/Heterosexual Gender identity: Female Cognitive needs: No Hearing needs: No Vision needs: No Female Reproductive History Menstrual Age of Menarche: 8 Questionnaire PHQ-9 Over the last 2 weeks, how often have you been bothered by any of the following problems? 1. Little interest or pleasure in doing things: not at all 2. Feeling down, depressed, or hopeless: not at all 3. Trouble falling or staying asleep, or sleeping too much: not at all 4. Feeling tired or having little energy: not at all 5. Poor appetite or overeating: not at all 6. Feeling bad about yourself - or that you are a failure or have let yourself or your family down: not at all 7. Trouble concentrating on things, such as reading the newspaper or watching television: not at all 8. Moving or speaking so slowly that other people could have noticed. Or the opposite - being so fidgety or restless that you have been moving around a lot more than usual: not at all 9. Thoughts that you would be better off or of hurting yourself in some way: not at all Total score: 0 Depression Screening Interpretation: Negative Depression Screening Done: Yes 91199 - PHQ-9 Billing: Yes Source: Developed by Drs. Alonso Amaya, Jane Dunham, Aiden Jama and colleagues, with an educational josemanuel from [employer]. Thrive Questionnaire Date Thrive assessed: 05/29/23 I am a: Patient What is your living situation today?: I have a steady place to live Within the past 12 months, did the food you bought not last and you didn't have the money to get more?: Never true Within the past 12 months, did you worry whether your food would run out before you got money to buy more?: Never true Do you have trouble paying for medicines?: No Do you have trouble getting transportation to medical appointments?: No Do you have trouble paying your heating and electricity bill?: No Do you have trouble taking care of your child, family member or friend?: No Do you have trouble with day-to-day activities such as bathing, preparing meals, shopping, managing finances, etc.?: No Are you currently unemployed and looking for a job?: No Are you interested in more education?: No Please select the resources that you would like help with: None Currently or been in a relationship where the following occur: no concerns reported THRIVE Score: 0 AUDIT C Alcohol Use Questionnaire (AUDIT-C) 1. How often do you have a drink containing alcohol?: Never 3. How often do you have six or more drinks on one occasion?: Never Total Score: 0 Score Reviewed/Action Taken: Yes BLU-7 AMB Questionnaire BLU-7 Date BLU - 7 assessed: 05/29/23 Feeling nervous, anxious, or on edge: 0 = Not at all Not being able to stop or control worryin = Not at all Worrying too much about different things: 0 = Not at all Trouble relaxin = Not at all Being so restless that it is hard to sit still: 0 = Not at all Becoming easily annoyed or irritable: 0 = Not at all Feeling afraid as if something awful might happen: 0 = Not at all Total BLU-7 score (0-4 normal; 5-9 mild; 10-14 moderate; 15-21 severe): 0 Source: Developed by Drs. Alonso Amaya, Jane Dunham, Aiden Jama and colleagues, with an educational josemanuel from [employer]. BLU-7 Assessment Billing BLU-7 Assessment Tool: BLU-7 Assessment 42853 Review of Systems Const Details: Constitutional: Denies fever. Skin: Denies rash. Eye: Denies eye pain. ENMT: Denies sore throat and nasal congestion. Respiratory: Denies shortness of breath and cough. Gastrointestinal: Denies nausea, vomiting or abdominal pain. Cardiovascular: Denies chest pain and syncope. Genitourinary: Denies dysuria. Musculoskeletal: Denies back pain and extremity pain. Neurologic: Denies headaches, confusion, and weakness. Psychiatric: Denies suicidal thoughts and substance abuse. Allergy/ Immunologic: Denies impaired immunity. Physical exam (Primary Care) Vital Signs: Last Vital Signs Temp 97.4 F 05/29/23 15:21 Pulse 60 05/29/23 15:21 Resp 13 05/29/23 15:21 BP 102/70 05/29/23 15:21 Pulse Ox 99 05/29/23 15:21 Oxygen Delivery Method Room Air 05/29/23 15:21 BMI result Body Mass Index 35.3 Tobacco/Smoking Status: Tobacco use Status Tobacco use date assessed 05/29/23 05/29/23 15:36 Patient Tobacco Use Status Never used Tobacco 05/29/23 15:36 Tobacco use type 05/29/23 15:36 e-Cigarette/Vaping Use Former Use 05/29/23 15:36 PHQ-9: PHQ-9 Score PHQ-9: Total score 0 05/29/23 15:53 Depression Screening Interpretation: Negative Thrive Assessment: Date of Thrive Assessment Date Thrive assessed 05/29/23 05/29/23 15:36 Currently or been in a relationship where the following occur: no concerns reported Const Other: General: Well developed, well nourished, in no acute distress. Appears stated age. Head: Normocephalic, atraumatic. Eyes: Pupils are equal, round and reactive to light and accommodation. Conjunctivae are clear. Vision grossly normal. Ears: TMs clear AU, EACS WNL Nose: Patent, without discharge. Mouth: There are no ulcers or lesions noted. No inflammation, no post nasal drip, no plaques nor exudates. Neck: Supple, no adenopathy or thyromegaly. Lungs: Clear to auscultation bilaterally. No rales, rhonchi or wheeze noted. Good air flow in all lopez. Heart: Regular rate and rhythm. No murmurs, click, rubs or gallops are noted. Abdomen: Bowel sounds present in all quadrants. Gravid abdomen Musculoskeletal: Joints are nontender, without swelling, redness, or effusions. Range of motion is observed to be normal. Pulses: Peripheral pulses are equal and palpable bilaterally. Extremities: No clubbing, cyanosis nor edema is noted. Neurologic: Gait and station normal. Cranial Nerves 2-12 intact. Motor strength grossly symmetrical and intact. No sensory loss. Balance normal. Skin: No rashes, ulcers, or lesions noted. Turgor is good. Skin color is good. Hair and nails are without abnormalities. Psych: Normal eye contact, affect and mood appropriate, and normal interactions. Patient is alert and appropriate to context. Office Procedures Flu Questionnaire Does the patient have a severe egg allergy?: No Does the patient have severe life threatening allergies?: No Does the patient have a fever or illness today?: No Has the patient ever had Guillain-Bonsall Syndrome?: No Has the patient ever had any past reaction to a flu shot?: No Immunizations flu vacc [id number] 6mos up(PF) 60 mcg(15 mcgx4)/0.5 mL IM syringe Performing Provider: PRASHANT Ayala Performing Location: [facility] Administered by: Paris Harrison CMA on 05/29/23 16:13 Dose Route Admin Location Dispensed Lot Number Expiration Date NDC Embedded Software Manager 0.5 mL IM Right Deltoid 0.5 mL [id number] 09/23/23 [id number] [employer] VIS Given Date VIS Provided VIS Publication Date 05/29/23 Single Vaccine 20 Eligibility Eligibility Date Funding Source Not [facility] Eligible 05/29/23 Private Assessment and Plan Assessment & Plan (1) Normal physical exam: Code(s): Z00.00 - Encounter for general adult medical examination without abnormal findings Orders: Orders Influenza [id number] Immunization Today Z23 - Encounter for immunization Patient Instructions: Health screenings for women ages 18 to 39 You should visit your health care provider from time to time, even if you are healthy. The purpose of these visits is to: Screen for medical issues Assess your risk for future medical problems Encourage a healthy lifestyle Update vaccinations and other preventive care services Help you get to know your provider in case of an illness Information Even if you feel fine, you should still see your provider for regular checkups. These visits can help you avoid problems in the future. For example, the only way to find out if you have high blood pressure is to have it checked regularly. High blood sugar and high cholesterol levels also may not have any symptoms in the early stages. A simple blood test can check for these conditions. There are specific times when you should see your provider or receive specific health screenings. The [place] Preventive Services Task Force publishes a list of recommended screenings. Below are screening guidelines for women ages 18 to 39. BLOOD PRESSURE SCREENING Your blood pressure should be checked at least once every 3 to 5 years if: Your blood pressure is in the normal range (top number less than 120 mm Hg and bottom number less than 80 mm Hg) You don't have risk factors for high blood pressure Ask your provider if you need your blood pressure checked more often if: The top number is 120 to 129 mm Hg or the bottom number is 70 to 79 mm Hg You have diabetes, heart disease, kidney problems, are overweight, or have certain other health conditions You have a first-degree relative with high blood pressure You are Black You had high blood pressure during a If the top number is 130 mm Hg or greater or the bottom number is 80 mm Hg or greater, this is considered stage 1 hypertension. Schedule an appointment with your provider to learn how you can reduce your blood pressure. Watch for blood pressure screenings in your area. Ask your provider if you can stop in to have your blood pressure checked. BREAST CANCER SCREENING Experts do not agree about the benefits of breast self-exams in finding breast cancer or saving lives. Talk to your provider about what is best for you. A screening mammogram is not recommended for most women under age 40. Your provider may discuss and recommend mammograms, MRI scans, or ultrasounds if you have an increased risk for breast cancer, such as: A mother or sister who had breast cancer at a young age (most often starting screening earlier than the age the close relative was diagnosed) You carry a high-risk genetic marker CERVICAL CANCER SCREENING Cervical cancer screening should start at age 21 years unless your provider advises otherwise. After the first test: Women ages 21 through 29 should have a Pap test every 3 years. Exoprts do not agree on whether HPV testing is recommended for this age group. Women ages 30 through 65 should be screened with either a Pap test every 3 years or the HPV test every 5 years or both tests every 5 years (called cotesting ). Women who have been treated for precancer (cervical dysplasia) should continue to have Pap tests for 20 years after treatment or until age 65, whichever is longer. If you have had your uterus and cervix removed (total hysterectomy), and you have not been diagnosed with cervical cancer or precancer (high grade cervical neoplasia), you do not need cervical cancer screening. CHOLESTEROL SCREENING Cholesterol screening should begin at: Age 45 for women with no known risk factors for coronary heart disease Age 20 for women with known risk factors for coronary heart disease Repeat cholesterol screening should take place: Every 5 years for women with normal cholesterol levels More often if changes occur in lifestyle (including weight gain and diet) More often if you have diabetes, heart disease, kidney problems, or certain other conditions DIABETES SCREENING You should be screened for diabetes starting at age 35 and then repeated every 3 years if you have no risk factors for diabetes. Screening may need to start earlier and be repeated more often if you have other risk factors for diabetes, such as: You have a first degree relative with diabetes. You are overweight or have obesity. You have high blood pressure, prediabetes, or a history of heart disease. Screening for diabetes should be done if you are planning to become and you are overweight and have other risk factors such as high blood pressure. DENTAL EXAM Go to the dentist once or twice every year for an exam and cleaning. Your dentist will evaluate if you need more frequent visits. EYE EXAM Have an eye exam every 5 to 10 years before age 40. If you have vision problems, have an eye exam every 2 years or more often if recommended by your provider. You should have an eye exam that includes an examination of your retina (back of your eye) at least every year if you have diabetes. IMMUNIZATIONS Commonly needed vaccines include: Flu shot: get one every year. COVID-19 vaccine: ask your provider what is best for you. Tetanus-diphtheria and acellular pertussis (Tdap) vaccine: have one at or after age 19 as one of your tetanus-diphtheria vaccines if you did not receive it as an adolescent. Tetanus-diphtheria: have a booster (or Tdap) every 10 years. Varicella vaccine: receive 2 doses if you never had chickenpox or the varicella vaccine. Hepatitis B vaccine: receive 2, 3, or 4 doses, depending on your exact circumstances. Measles, mumps, and rubella (MMR) vaccine: receive 1 to 2 doses if you are not already immune to MMR. Your provider can tell you if you are immune. Ask your provider about the human papillomavirus (HPV) vaccine if: You have not received the HPV vaccine in the past You have not completed the full vaccine series (you should catch up on this shot) Ask your provider if you should receive other immunizations if you have certain health problems that increase your risk for some diseases such as pneumonia. INFECTIOUS DISEASE SCREENING Women who are sexually active should be screened for chlamydia and gonorrhea up until age 25. Women 25 years and older should be screened for chlamydia and gonorrhea if at high risk. Screening for hepatitis C: All adults ages 18 to 79 should get a one-time test for hepatitis C. people should be screened at every . Screening for human immunodeficiency virus (HIV): All people ages 15 to 65 should get a one-time test for HIV. Depending on your lifestyle and medical history, you may also need to be screened for infections such as syphilis and HIV, as well as other infections. PHYSICAL EXAM All adults should visit their provider from time to time, even if they are healthy. The purpose of these visits is to: Screen for disease Assess your risk of future medical problems Encourage a healthy lifestyle Update your vaccinations and other preventive care services Maintain a relationship with a provider in case of an illness Your height, weight, and BMI should be checked at every exam. During your exam, your provider may ask you about: Depression and anxiety Diet and exercise Alcohol and tobacco use Safety issues, such as using seat belts, smoke detectors, and intimate partner violence Your medicines and risk for interactions SKIN SELF-EXAM Your provider may check your skin for signs of skin cancer, especially if you're at high risk, such as if you: Have had skin cancer before Have close relatives with skin cancer Have a weakened immune system OTHER SCREENING Talk with your provider about colon cancer screening if you have a strong family history of colon cancer or polyps, or if you have had inflammatory bowel disease or polyps yourself. Routine bone density screening of women under 40 is not recommended. Coding Level of Care Code Est Pt Prev Care 18-39y(62033) Diagnoses Normal physical exam Z00.00 Additional Codes BLU-7 Assessment Billing - BLU-7 Assessment Tool: BLU-7 Assessment 44222 ([id number])
[2023-05-29 15:21] VITALS: BP 102/70; PULSE 60; RESP 13; TEMP 36.3; O2SAT 99; BMI 35.3
== END 2023-05-29 16:13 | disposition home or self-care (01) ==
PROVIDERS: Visit Provider Nurse Practitioner Family
DX: Z00.00 Encounter for general adult medical examination without abnormal findings (principal); Z23 Encounter for immunization
CPT/HCPCS: 90471; 90686; 99395

== ENCOUNTER 2023-07-05 08:07 | Outpatient (REF) | payer OTHER, SELFPAY ==
[2023-07-05 09:33] LABS: MANUAL DIFF FLAG NO
[2023-07-05 09:47] LABS: Basophils Percent Auto 0.3 % (0-2); Eosinophils Absolute Auto 0.1 X10*3/uL (0.0-0.4); Eosinophils Percent Auto 0.9 % (0-4); Hematocrit 40.6 % (37.0-47.0); Hemoglobin 13.8 g/dl (12.0-16.0); Imm Gran Abs Auto 0.04 X10*3/uL (0.00-0.03); Imm Gran Pct Auto 0.4 % (0.0-0.4); Lymphocytes Absolute Auto 2.1 X10*3/uL (1.2-4.9); Lymphocytes Percent Auto 20.1 % (20-40); Mean Corpuscular Hemoglobin 31.7 pg (27.0-33.0); Mean Corpuscular Volume 93.3 fL (80.0-98.0); Mean Platelet Volume 10.4 fL (9.4-12.3); Monocytes Absolute Auto 0.9 X10*3/uL (0.1-1.2); Monocytes Percent Auto 9.1 % (2-11); Neutrophils Absolute Auto 7.1 x10*3/uL (2.0-8.3); Neutrophils Percent Auto 69.2 % (45-73); Platelet Count 232 X10*3/uL (160-400); Red Blood Count 4.35 X10*6/uL (4.20-5.50); Red Cell Distribution Width 12.9 % (11.0-16.0); White Blood Count 10.2 X10*3/uL (4.8-10.8)
[2023-07-05 10:17] LABS: Glucose 1 Hour PP 50gm Dose 74 mg/dL (60-140)
== END 2023-07-05 08:08 | disposition home or self-care (01) ==
LOC: HO.LAB 08:07
PROVIDERS: Visit Provider Obstetrics & Gynecology
DX: Z33.1 Pregnant state, incidental (principal)
CPT/HCPCS: 36415; 82950; 85025; 86850; 86900

== ENCOUNTER 2023-12-10 13:16 | Outpatient (AMB) | payer OTHER, SELFPAY ==
--- NOTE | 2023-12-10 13:46 | MHC.PC.OV ---
Vital Signs 12/10/23 13:49 Height 5 ft 4 in Weight 204 lb BMI 35.0 BP 118/70 Blood Pressure Location Rt brachial Position Sitting Respiration 15 Pulse 84 Pulse Source Pulse Oximeter Pulse Oximetry (%) 96 Oxygen Delivery Method Room Air Intake Visit Reasons: follow up after Intake Note: patient here for a follow up after Allergies amoxicillin [AMOXICILLIN] Allergy (Unknown, Verified 12/10/23 14:05) UNKNOWN, hand swelling penicillin V Adverse Reaction (Unknown, Verified 12/10/23 14:05) hand swelling Medication List - Last Reconciled 12/10/23 by Nati Shen, SENIOR ORACLE APPLICATIONS DEVELOPER- docosahexaenoic acid ( DHA) mg PO Tobacco use date assessed: 05/29/23 Dental Screening Dental Screen Date: 05/29/23 HPI HPI Comments History of Present Illness Details 22-year-old female with GERD Health Maintenance: labs 05/07/2023 show a normal CBC, Pap smear 2020 within normal limits; currently managed by [facility] [employer] Vaccines: COVID x 2. Tdap 2023 Surgical hx:None Hospitalizations: None Family hx: Mom alive and well. Dad alive and well. Siblings: 2 sisters, 1 brother. Alive and well. 2020, elective + MGM Alive MGF age 79 colon cancer with mets lung and brain PGM age 64 DM PGF age 70 natural causes Denies sig family hx of aunts, uncles and first cousins. Here today for routine follow up status post vaginal delivery of her 1st child, a son, Richar, born October 12, 2023. She reports that she was induced with Pitocin, had an epidural. Unfortunately she did have 3 vaginal tears. She is currently active with her rehab consultant provider. She is being referred to urogynecology for a continued painful tear. Reports that when she urinates she has pain and when she goes to move her bowels she also has pain and pressure. She is not currently on any control. She has not yet had intercourse. She reports that the plan will be for an IUD. She is bottle-feeding. Feels like her mood is good. States she has a great support system. Her boyfriend went back to work. However her grandmother is upstairs. Her sleep is okay/reasonable. She is eating and drinking okay. Has brief crying episodes describes them as manageable and infrequent. She plans to return to work February 21. She is currently in school. Denies any problems with blood pressure during the antepartum period. Had swelling in her lower extremities 2 weeks however this has resolved entirely. Exam Awake alert NAD Bonding w/ her son, engaging appropriately, Mood and affect WNL RRR LS CTAB No edema BLE Plan Reviewed s/sx of depression and anxiety. Offered support and empathy and advised her to f/u if she feels she has any sx. Otherwise, cont care w/ ObGyn and UroGyn. RTO in May for CPE, sooner PRN. This note is constructed using voice recognition software. While every effort has been made to ensure accuracy in elementary esl teacher, still errors may have been included Sometimes, these errors may affect the content or meaning of the given sentence . Total time spent caring for the patient today was 30 minutes. This includes time spent before the visit reviewing the chart, time spent during the visit, and time spent after the visit on documentation PFSH Medical History Insomnia Surgical History No history of previous surgery Family History Mother Factor V deficiency Father No problems noted. Maternal Grandfather Colon cancer Lung cancer Brain cancer Social History Household Members: Family Household Members Other:: Grandma Both parents involved: No Caregiver staying overnight: No Housing: House Are you a primary school child care attendant to a significant other at home: No Do you presently have visiting nurse or other home services: No 75 years or older and lives alone: No Alcohol intake: former Comment: No Alcohol Patient Tobacco Use Status: Never used Tobacco e-Cigarette/Vaping Use: Former Use Substance Use Type: Marijuana service: No Current occupational status: employed and student (Human Services degree; Bachelors in Psychology ) Current occupation: [employer] Current occupational exposures/hazards: No Sexual orientation: Straight/Heterosexual Gender identity: Female Cognitive needs: No Hearing needs: No Vision needs: No Female Reproductive History Menstrual Age of Menarche: 8 Questionnaire Thrive Questionnaire Date Thrive assessed: 05/29/23 BLU-7 AMB Questionnaire BLU-7 Date BLU - 7 assessed: 05/29/23 Source: Developed by Drs. Alonso Amaya, Jane Dunham, Aiden Jama and colleagues, with an educational josemanuel from [employer]. Physical exam (Primary Care) Vital Signs: Last Vital Signs Pulse 84 12/10/23 13:49 Resp 15 12/10/23 13:49 BP 118/70 12/10/23 13:49 Pulse Ox 96 12/10/23 13:49 Oxygen Delivery Method Room Air 12/10/23 13:49 BMI result Body Mass Index 35.0 Tobacco/Smoking Status: Tobacco use Status Tobacco use date assessed 05/29/23 12/10/23 13:46 Patient Tobacco Use Status Never used Tobacco 12/10/23 13:46 Tobacco use type 07/05/23 08:07 e-Cigarette/Vaping Use Former Use 12/10/23 13:46 Thrive Assessment: Date of Thrive Assessment Date Thrive assessed 05/29/23 12/10/23 13:46 Assessment and Plan Assessment & Plan (1) Encounter for assessment: Code(s): Z39.2 - Encounter for routine follow-up Qualifiers: visit type: routine follow-up Qualified Code(s): Z39.2 - Encounter for routine follow-up (2) Encounter for screening for maternal depression: Code(s): Z13.32 - Encounter for screening for maternal depression Coding Level of Care Code Est Pt Level 4 (76744) Diagnoses Encounter for routine follow-up Z39.2 visit type: routine follow-up Encounter for screening for maternal depression Z13.32
[2023-12-10 13:49] VITALS: BP 118/70; PULSE 84; RESP 15; O2SAT 96; BMI 35.0
== END 2023-12-10 14:21 | disposition home or self-care (01) ==
PROVIDERS: Visit Provider Nurse Practitioner Family
DX: Z39.2 Encounter for routine postpartum follow-up (principal)

== ENCOUNTER → 2023-12-10 13:16 | Outpatient (BNVA) | payer OTHER, SELFPAY | PROVIDERS: Visit Provider Nurse Practitioner Family | DX: Z39.2 Encounter for routine postpartum follow-up (principal) ==